=== PATIENT | male | born 1940 | race Caucasian/White ===

== ENCOUNTER → 2021-01-18 | Outpatient (CLI) | payer MEDICARE ==
[2021-01-18 13:23] VITALS: BP 147/74; PULSE 67; RESP 18; TEMP 98.4
--- NOTE | 2021-01-18 13:43 | P.PAINCN ---
History of Present Illness - Reason for Consult Consult date: 01/18/21 - History of Present Illness This is an initial consultation visit for this 80 years old male with a chronic history of severe neck pain with radiation to the upper extremity bilaterally, associated numbness and tingling sensation, he reported that the pain is constant increases with any neck movement but the numbness and tingling sensation is not continuous, he denies any weakness in the upper extremity and denies any initiating event, he denies any fever or night sweats. He denies any change in the bowel movement or urination,, he tried oral pain medication without any benefit. He had 6 weeks of physical therapy without any benefit, patient tried oral steroid and intramuscular cortisone without any benefit Past Medical History Past Medical History: Diabetes Mellitus, Hyperlipidemia, Hypertension Additional Past Medical History / Comment(s): gout, History of Any Multi-Drug Resistant Organisms: None Reported Past Surgical History: Orthopedic Surgery Additional Past Surgical History / Comment(s): yann shoudler arthroscopy, surgery to remove kidney stones, yann cataracts Past Anesthesia/Blood Transfusion Reactions: No Reported Reaction Smoking Status: Former smoker - Past Family History Mother Family Medical History: No Reported History Medications and Allergies Home Medications Medication Instructions Recorded Confirmed Type Allopurinol [Zyloprim] 300 mg PO DAILY 01/13/21 01/18/21 History Aspirin [Adult Low Dose Aspirin EC] 81 mg PO HS 01/13/21 01/18/21 History Atorvastatin [Lipitor] 40 mg PO HS 01/13/21 01/18/21 History Olmesartan Medoxomil [Benicar] 40 mg PO DAILY 01/13/21 01/18/21 History Verapamil HCl [Verapamil ER] 240 mg PO HS 01/13/21 01/18/21 History metFORMIN HCL [Glucophage] 500 mg PO BID 01/13/21 01/18/21 History predniSONE [Deltasone] 20 mg PO DIRECTED 01/13/21 01/18/21 History Allergies Allergy/AdvReac Type Severity Reaction Status Date / Time No Known Allergies Allergy Verified 01/13/21 15:25 Physical Exam Vitals: Vital Signs Temp Pulse Resp BP Pulse Ox 01/18/21 13:17 98.4 F 67 18 147/74 94 L Results Comments: My of the cervical spine C3 4 bulging disc at C4 5 bulging disc and left foraminal stenosis and facet hypertrophy C5 6 bulging disc and facet joint hypertrophy C6 7 bulging disc and facet joint hypertrophy and foraminal stenosis at C6 7 Assessment and Plan Plan: Assessment and plan=1-cervical radiculopathy. 2-cervical degenerative disc disease. 3-cervical spondylosis with cervical facet arthropathy. 4-cervical foraminal stenosis. he could benefit from cervical epidural steroid injection under fluoroscopy guidance at C6 7 or C7-T1 Time with Patient: Greater than 30 PQRS Measure Charge Sheet Measure #130: Documentation of Current Meds in Medical Chart: Patient's medications documented in chart Measure #226: Tobacco Use: Screen & Cessation Intervention: Pt not a tobacco user Measure #111: Pneumonia Vaccination: Pneumococcal vaccine administered or previously received Measure #47: Advance Care Plan: Advance care planning discussed & documented, pt chose/unable to give Measure #412: Opioid Treatment Agreement: No documentation of signed opioid treatment agreement Measure #408: Opioid Therapy Follow-up Evaluation: Patient had NO f/u eval minimum every 3 months during opioid therapy Measure #317: Preventitive Care & Scrn High Bld Press & F/U: Pre-hypertensive or hypertensive BP documented, pt will f/u with PCP Measure #128: Body Mass Index (BMI) Screening & Follow-up: BMI documented ABOVE normal parameters - f/u documented Measure #131: Pain Assessment & Follow-up: Pain positive & plan documented, Follow-up scheduled Measure #431: Unhealthy Alcohol Use Preventative Care & Scrn: Patient not identified as an unhealthy alcohol user PQRS Narrative: Blood Pressure 147/74 Pain Intensity [Right Shoulder 0 ] Pain Intensity [Left Shoulder] 0 Scale Used Numeric (1 - 10) Hx Alcohol Use (MH) Yes Home Medications: Ambulatory Orders Allopurinol [Zyloprim] 300 mg PO DAILY 01/13/21 Aspirin [Adult Low Dose Aspirin EC] 81 mg PO HS 01/13/21 Atorvastatin [Lipitor] 40 mg PO HS 01/13/21 Olmesartan Medoxomil [Benicar] 40 mg PO DAILY 01/13/21 Verapamil HCl [Verapamil ER] 240 mg PO HS 01/13/21 metFORMIN HCL [Glucophage] 500 mg PO BID 01/13/21 predniSONE [Deltasone] 20 mg PO DIRECTED 01/13/21
== END | disposition home or self-care (01) ==
LOC: PNWHC3 12:53
PROVIDERS: ATTEND Specialist
DX: M50.30 Other cervical disc degeneration, unspecified cervical region (principal); M47.22 Other spondylosis with radiculopathy, cervical region; M46.92 Unspecified inflammatory spondylopathy, cervical region; M48.02 Spinal stenosis, cervical region
CPT/HCPCS: 99202

== ENCOUNTER 2021-02-21 09:42 | Day surgery (SDC) | payer MEDICARE ==
[2021-02-20 09:43] VITALS: BMI 33.9
[~2021-02-21 09:42] MED LIST: LACTATED RINGERS 1,000 ML IV SCH
[2021-02-21 10:05] VITALS: TEMP 97.3
[2021-02-21] MEDS ORDERED: LIDOCAINE 1% (10MG/ML) FOR IV START INTRADERMA ONE (10:08)
[2021-02-21 10:18] LABS: Glucose,Whole Blood 116 mg/dL (75-99)
[2021-02-21] MEDS ORDERED: IOPAMIDOL M200 10 ML VIAL ONE (10:50)
[2021-02-21] MEDS ORDERED: fentaNYL (PF) 50 MCG/ML 2 ML AMP ONE (10:50)
[2021-02-21] MEDS ORDERED: MIDAZOLAM 2 MG/2 ML VIAL ONE (10:50)
[2021-02-21] MEDS ORDERED: DEXAMETHASONE SOD PHOSPHATE 10 MG/ML 1 ML VIAL ONE (10:50)
--- NOTE | 2021-02-21 11:04 | P.PCN ---
Date of Procedure: 02/21/21 Surgeon: Servando Crocker Pathology: none sent Condition: stable Disposition: PACU Description of Procedure: . PROCEDURE 1. Cervical epidural steroid injection under fluoroscopic guidance, C7-T1 left paramedian approach. 2. Cervical epidurogram. : PREOPERATIVE DIAGNOSIS: Cervical radiculopathy, cervical spondylosis without myelopathy POSTOPERATIVE DIAGNOSIS: : Same as above ANESTHESIA: Local anesthesia with 1% lidocaine and IV moderate conscious sedation with Versed and Fentanyl . EBL 0 PROCEDURE INDICATION: The patient with neck pain and radiculopathy unresponsive to conservative treatment consents for procedure. PROCEDURE DESCRIPTION / TECHNIQUE: The patient was seen and identified in the preoperative area. Risks, benefits, complications, including but not limited to infections ,bleeding , allergic reactions to the medications ,and not complete pain relief, and alternatives were discussed with the patient, the patient agreed to proceed with the procedure and signed the consent. Patient was taken to the OR and time out was completed. The patient was placed in the prone position on the procedure table. A pillow was placed under the patients chest to increase the flexion of the cervical spine . The cervical area was prepped and draped in the usual sterile fashion. Vital signs were closely monitored during the procedure. Conscious sedation was used during the procedure to decrease patients anxiety. Using anterior-posterior fluoroscopy, the C7-T1 interlaminar space was identified and the skin over this site was marked and then infiltrated with 1% lidocaine subcutaneously. Subsequently, a 20-gauge 3-1/2-inch Tuohy epidural needle was inserted and advanced toward the epidural space by means of loss of resistance to air technique and guided by AP and lateral fluoroscopy. The needle tip contacted the lamina of T1 vertebra first, then it was walked off bone and into the epidural space using the loss of to air and fluoroscopic guidance to identify the epidural space. The correct needle position in the epidural space was verified with the injection of 1 mL of the water soluble contrast dye Isovue and observing an excellent epidurogram with the epidural spread of the dye, after negative aspiration for blood and CSF and in the absence of paresthesias. Again after negative aspiration, a 2 ml mixture containing 10 mg of Decadron and 1 ml of preservative free Normal Saline solution was injected and a washout of epidurogram was seen. Needle was withdrawn intact, skin was cleansed, and bandages were applied. A copy of the needle placement picture was saved to the fluoroscopy machine.
[2021-02-21] MEDS ORDERED: IV FLUID CONTINUATION 600 ML IV ONE (11:11)
[2021-02-21 11:16] VITALS: RESP 16
--- NOTE | 2021-02-21 11:18 | FL ---
EXAMINATION TYPE: FL guided pain mgmt statistic DATE OF EXAM: 02/21/2021 CLINICAL HISTORY: Neck pain. TECHNIQUE: Fluoroscopy. COMPARISON: None. FINDINGS: Fluoroscopic guidance was provided during pain relief procedure performed by Dr. Crocker . A total of 8 seconds of fluoroscopic time was utilized during the procedure and 1 spot images are a cquired. Single image acquired shows needle localization near cervicothoracic junction. IMPRESSION: As Above.
[2021-02-21 11:29] VITALS: BP 128/69; PULSE 62
== END 2021-02-21 11:48 | disposition home or self-care (01) ==
LOC: ORPAIN 09:42
PROVIDERS: ATTEND Anesthesiology
DX: M47.22 Other spondylosis with radiculopathy, cervical region (principal); Z79.82 Long term (current) use of aspirin; Z79.899 Other long term (current) drug therapy; I10 Essential (primary) hypertension; E11.9 Type 2 diabetes mellitus without complications
CPT/HCPCS: 62321; J2250; J1100; J3010; Q9966; 99152

== ENCOUNTER → 2021-03-29 | Outpatient (CLI) | payer MEDICARE ==
[2021-03-29 10:30] VITALS: BP 155/79; PULSE 69; RESP 18; TEMP 97.8
--- NOTE | 2021-03-29 10:49 | P.PN ---
Subjective Progress Note Date: 03/29/21 This is Follow up visit for this 80 years old male with a chronic history of severe neck pain with radiation to the upper extremity bilaterally, associated numbness and tingling sensation, he reported that the pain is constant increases with any neck movement but the numbness and tingling sensation is not continuous, he denies any weakness in the upper extremity and denies any initiating event, he denies any fever or night sweats. He denies any change in the bowel movement or urination,, he tried oral pain medication without any benefit. He had 6 weeks of physical therapy without any benefit, patient tried oral steroid and intramuscular cortisone without any benefit, a few weeks ago we did cervical epidural steroid injection which helped his neck pain 50% Physical Examinations : -Constitutiona : Cooperative , not in acute distress . -HEENT : nech : supple , no Lymphadenopathy , normal thyroid size . : eyes : no ptosis , no icterus, no photophobia . - neurologic : Cranial nerve II to XII intact , no focal neurological deffecit . -psychatric : alert , oriented X 3 , appropriate affect , intact judgment and insight . -Lymphatic : no Lymphadenopathy . - musculoskeltal : Cervical Spine motor stregnth in the deltoid and biceps, normal right side , normal Left side motor stregnth biceps and the wrist extensors normal right side ,normal left side . motor stregnth in the triceps muscle . normal Right side , normal Left side deep tendon reflexes normal at the biceps , normal at Brachioradialis , normal at triceps. cervical facet loading test: Positive Bilaterally Spurling test= positive Right , posi tive left. Neck distraction test= positive Right , positive left. Samson sign= positive right, positive left . Pain with the flexion and abduction and external rotation of the shoulders joints bilaterally Lumber spine moter stegnth lower extremities ,thigh and legs 5/5 Right side , 5/5 Left side Results Comments: My of the cervical spine C3 4 bulging disc at C4 5 bulging disc and left foraminal stenosis and facet hypertrophy C5 6 bulging disc and facet joint hypertrophy C6 7 bulging disc and facet joint hypertrophy and foraminal stenosis at C6 7 Assessment and Plan Plan: Assessment and plan=1-cervical radiculopathy. 2-cervical degenerative disc disease. 3-cervical spondylosis with cervical facet arthropathy. 4-cervical foraminal stenosis. 5-arthralgia bilateral shoulder he could benefit from cervical epidural steroid injection under fluoroscopy guidance at C6 7 or C7-T1 PQRS Measure Charge Sheet Measure #130: Documentation of Current Meds in Medical Chart: Patient's medications documented in chart Measure #226: Tobacco Use: Screen & Cessation Intervention: Pt not a tobacco user Measure #111: Pneumonia Vaccination: Pneumococcal vaccine administered or previously received Measure #47: Advance Care Plan: Advance care planning discussed & documented, pt chose/unable to give Measure #412: Opioid Treatment Agreement: No documentation of signed opioid treatment agreement Measure #408: Opioid Therapy Follow-up Evaluation: Patient had NO f/u eval minimum every 3 months during opioid therapy Measure #317: Preventitive Care & Scrn High Bld Press & F/U: Pre-hypertensive or hypertensive BP documented, pt will f/u with PCP Measure #128: Body Mass Index (BMI) Screening & Follow-up: BMI documented ABOVE normal parameters - f/u documented Measure #131: Pain Assessment & Follow-up: Pain positive & plan documented, Follow-up scheduled Measure #431: Unhealthy Alcohol Use Preventative Care & Scrn: Patient not identified as an unhealthy alcohol user PQRS Narrative: Objective - Vital Signs Vital signs: Vital Signs Temp 97.8 F 03/29/21 10:26 Pulse 69 03/29/21 10:26 Resp 18 03/29/21 10:26 BP 155/79 03/29/21 10:26 Pulse Ox 94 L 03/29/21 10:26
== END | disposition home or self-care (01) ==
LOC: PNWHC3 10:17
PROVIDERS: ATTEND Specialist
DX: M48.02 Spinal stenosis, cervical region (principal); M50.11 Cervical disc disorder with radiculopathy, high cervical region; M47.892 Other spondylosis, cervical region; M46.92 Unspecified inflammatory spondylopathy, cervical region; M25.511 Pain in right shoulder; M25.512 Pain in left shoulder
CPT/HCPCS: 99211

== ENCOUNTER 2021-04-25 09:25 | Day surgery (SDC) | payer MEDICARE ==
[2021-04-24 09:57] VITALS: BMI 33.9
[2021-04-25 09:52] VITALS: RESP 16; TEMP 96.8
[2021-04-25 09:54] LABS: Glucose,Whole Blood 127 mg/dL (75-99)
[2021-04-25] MEDS ORDERED: IOPAMIDOL M200 10 ML VIAL ONE (10:11)
[2021-04-25] MEDS ORDERED: methylPREDNISolone ACETATE 40 MG/ML 1 ML VIAL ONE (10:11)
[2021-04-25] MEDS ORDERED: LACTATED RINGERS 1,000 ML IV SCH (10:15)
[2021-04-25 10:54] VITALS: PULSE 70
--- NOTE | 2021-04-25 10:57 | FL ---
EXAMINATION TYPE: FL guided pain mgmt statistic DATE OF EXAM: 04/25/2021 CLINICAL HISTORY: Neck pain. TECHNIQUE: Fluoroscopy. COMPARISON: None. FINDINGS: Fluoroscopic guidance was provided during pain relief procedure performed by Dr. Alexander . A total of 26 seconds of fluoroscopic time was utilized during the procedure and two spot images ar e acquired. Images acquired shows needle localization near cervicothoracic junction. IMPRESSION: As Above.
[2021-04-25 11:01] LABS: Glucose,Whole Blood 152 mg/dL (75-99)
[2021-04-25 11:10] VITALS: BP 130/75
--- NOTE | 2021-04-25 12:40 | P.PCN ---
Date of Procedure: 04/25/21 Description of Procedure: Pre- and Post-operative Diagnosis: Cervical disc degenerative disease, cervical spondylosis without myelopathy, and cervical spine stenosis Procedure: Attempted C6-C7 Inter-Laminar Cervical Epidural Steroid Injection under biplanar fluoroscopy Surgeon: Chantel Mitchell Anesthesia: Local: 1% Lidocaine, IV sedation :none Complications: vasovegal attack during the middle of the procedure -patient expressed feeling dizzy, sweating, bradycardia Estimated blood loss: None Specimens removed: None Fluoroscopic image: saved to electronic medical records. Indications for Procedure: The patient has been suffering from neck pain and p ain radiating to the upper extremity . Inadequate pain control with pharmacologic regimen. An inter-laminar approach cervical epidural steroid injection was scheduled for the patient. Procedure and Findings: The patient was seen and examined in the holding area. The written informed consent was obtained after explaining the risks, benefits, alternatives of the procedure to the patient. The patient was brought to the procedure room and was placed in the prone position on the operating table. A pillow was placed under the upper chest. Standard anesthesia monitoring was done through out the procedure. Timeout was completed. The skin preparation was done with ChloraPrep 2 and draping was done in usual sterile fashion. Sterile technique was observed throughout the procedure. Under fluoroscopic guidance, the C6-C7 inter-laminar space was identified. 3 ml of 1% Lidocaine was injected with a 25 gauge needle to achieve adequate local anesthesia of the skin and subcutaneous tissue. A 20 gauge, 3.5 inch Tuohy type epidural needle was placed and gradually advanced , but not able to advance into the epidural space.. Discussed with the patient to proceed on C7-T1 level, skin anesthetized with 2 mL of 1% lidocaine using 25-gauge needle. Meanwhile patient complaining dizzy and sweaty. Immediately procedure abandoned. The needle was removed intact, area was cleaned and bandage was applied. Patient turned into supine positionin the patient bed. Disposition : The patient tolerated the procedure very well. The patient was transferred to the recovery room and remained stable until discharged home. The patient was given detailed discharge instructions for bleeding, infection, increased pain at the injection site, and was advised to seek immediate medical attention should significant side effects develop. The patient will be followed up with our Pain [facility] within 1-4 weeks for follow-up visit. Postoperative: 12-lead EKG to rule out any cardiac event before going home. EKG showed sinus rhythm. Discussed with the patient, and family. Clearly understood. Patient wants to check his shoulder pain in future.
== END 2021-04-25 11:38 | disposition home or self-care (01) ==
LOC: ORPAIN 09:25
DX: M47.812 Spondylosis without myelopathy or radiculopathy, cervical region (principal)
CPT/HCPCS: 62321; J1030; Q9966